=== PATIENT | female | born 1970 | race African-American/Black ===

== ENCOUNTER → 2019-10-03 | Outpatient (CLI) | payer OTHER ==
--- NOTE | 2019-10-03 11:50 | US ---
EXAMINATION TYPE: US bladder DATE OF EXAM: 10/03/2019 COMPARISON: NONE CLINICAL HISTORY: N39.41 Urge incontinence. possible bladder prolapse, urinary frequency EXAM MEASUREMENTS: Post Void Residual Volume: 4.9 mL Color Doppler performed to assess ureteral jets. Bilateral Jets seen: no Normal Post Void Residual (less than 50ml): yes IMPRESSION: Diminutive bladder size with wall thickening may be related to poor distention. Correlat e clinically.
== END | disposition home or self-care (01) ==
LOC: RADUSWWP 10:23
PROVIDERS: ATTEND Internal Medicine
DX: N32.89 Other specified disorders of bladder (principal)
CPT/HCPCS: 76857